=== PATIENT | female | born 1970 | race African-American/Black ===

== ENCOUNTER 2025-02-24 12:15 | Emergency (ER) | payer MEDICAID ==
[~2025-02-24] VITALS: Ht 172.7 cm; Wt 159.0 kg
[2025-02-24 12:19] VITALS: O2SAT 99
[2025-02-24 13:34] LABS: BASOPHILS % 0.7 % (0.0-2.0); EOSINOPHILS % 1.3 % (0.0-5.0); HEMATOCRIT. 37.6 % (36.0-48.0); HEMOGLOBIN. 12.4 g/dL (12.0-16.0); LYMPHOCYTES % 37.4 % (20.0-50.0); MEAN PLATELET VOLUME 7.2 fl (7.4-10.4); MONOCYTES % 4.4 % (2.0-8.0); NEUTROPHILS % 56.2 % (40.0-76.0); PLATELET 343 x1000/uL (130-400); RED BLOOD CELL COUNT 4.70 mill/uL (4.2-5.4); RED CELL DISTRIBUTION WIDTH 13.9 % (11.6-14.6)
[2025-02-24 13:44] LABS: INR 0.9
[2025-02-24 13:47] LABS: CREATININE 0.7 mg/dL (0.6-1.0)
[2025-02-24 13:48] LABS: UREA NITROGEN BLOOD 9 mg/dL (9-23)
[2025-02-24 13:49] LABS: ASPARTATE AMINOTRANSFERASE 19 IU/L (<34)
[2025-02-24 13:50] LABS: BILIRUBIN DIRECT < 0.1 mg/dL (<=3.0); BILIRUBIN TOTAL 0.4 mg/dL (0.1-1.0); PROTEIN TOTAL 7.4 g/dL (6.0-8.3)
[2025-02-24] MEDS: OXYCODONE HCL/ACETAMINOPHEN 5/325MG TABLET PO STA (14:09)
[2025-02-24] MEDS: KETOROLAC 30MG/ML VIAL IM STA (14:09)
[2025-02-24] MEDS ORDERED: LIDO-53 TP (15:38)
[2025-02-24] MEDS ORDERED: OXYC-100 MT (15:38)
[2025-02-24] MEDS ORDERED: CELE100C MT (15:38)
[2025-02-24 15:58] VITALS: BP 141/67; PULSE 74; RESP 18; TEMP 36.6; O2SAT 98
== END 2025-02-24 16:00 | disposition home or self-care (01) ==
LOC: ER 12:15
DX: M54.50 Low back pain, unspecified (principal); E11.9 Type 2 diabetes mellitus without complications; E78.00 Pure hypercholesterolemia, unspecified; I10 Essential (primary) hypertension; Z79.899 Other long term (current) drug therapy; Z86.73 Personal history of transient ischemic attack (TIA), and cerebral infarction without residual deficits
CPT/HCPCS: 99283; 80076; 80048; 83690; 85025; 85610; 36415; 96372; J1885